=== PATIENT | male | born 1960 | race Caucasian/White ===

== ENCOUNTER → 2022-12-30 | Outpatient (CLI) | payer OTHER | END | disposition home or self-care (01) | LOC: RAD 14:21 | PROVIDERS: ATTEND Internal Medicine Interventional Cardiology | DX: I08.1 Rheumatic disorders of both mitral and tricuspid valves (principal); R06.02 Shortness of breath | CPT/HCPCS: 93306 ==

== ENCOUNTER → 2023-01-25 | Outpatient (CLI) | payer OTHER | END | disposition home or self-care (01) | LOC: RAD 12:14 | PROVIDERS: ATTEND Internal Medicine Interventional Cardiology | DX: I87.2 Venous insufficiency (chronic) (peripheral) (principal) | CPT/HCPCS: 93970 ==

== ENCOUNTER → 2024-05-08 | Outpatient (CLI) | payer OTHER | END | disposition home or self-care (01) | LOC: RAD 16:05 | PROVIDERS: ATTEND Student in an Organized Health Care Education/Training Program | DX: M25.561 Pain in right knee (principal) | CPT/HCPCS: 73560 ==

== ENCOUNTER → 2024-07-20 | Outpatient (CLI) | payer OTHER | END | disposition home or self-care (01) | LOC: LAB 15:48 | PROVIDERS: ATTEND Student in an Organized Health Care Education/Training Program | DX: N40.1 Benign prostatic hyperplasia with lower urinary tract symptoms (principal) | CPT/HCPCS: 87086 ==

== ENCOUNTER → 2024-10-19 | Outpatient (CLI) | payer OTHER | END | disposition home or self-care (01) | LOC: RAD 09:41 | PROVIDERS: ATTEND Internal Medicine | DX: I70.203 Unspecified atherosclerosis of native arteries of extremities, bilateral legs (principal); I87.8 Other specified disorders of veins; I87.2 Venous insufficiency (chronic) (peripheral) | CPT/HCPCS: 93922; 93925; 93970 ==

== ENCOUNTER → 2025-01-26 | Outpatient (CLI) | payer OTHER | END | disposition home or self-care (01) | LOC: RAD 07:40 | PROVIDERS: ATTEND Physician Assistant | DX: I05.8 Other rheumatic mitral valve diseases (principal); I87.2 Venous insufficiency (chronic) (peripheral); I11.9 Hypertensive heart disease without heart failure; I65.21 Occlusion and stenosis of right carotid artery | CPT/HCPCS: 93306; 93880 ==

== ENCOUNTER 2025-03-01 07:55 | Day surgery (SDC) | payer OTHER ==
[2025-02-27 11:39] VITALS: BP 143/78; PULSE 70; RESP 15; TEMP 97.9; O2SAT 96
[2025-02-27 11:56] LABS: BASOPHIL # 0.0 10^3/uL (0.0-0.1); BASOPHIL % 0.2 % (0.2-1.2); EOSINOPHIL # 0.1 10^3/uL (0.0-0.2); EOSINOPHIL % 1.2 % (0.0-5.0); HEMATOCRIT(ML) 38.5 % (37.0-53.0); IG % 0.20 % (0.00-0.50); LYMPHOCYTES # 0.50 10^3/uL1 (1.0-4.8); LYMPHOCYTES % 8.8 % (24.0-44.0); MEAN CORP HGB 33.2 pg (26-34); MEAN CORP HGB CONCENTRATION 33.8 g/dL (33-36.5); MEAN CORP VOLUME 98.5 fL (78-100); MONOCYTES # 0.5 10^3/uL (0.3-0.8); MONOCYTES % 8.8 % (5.0-12.0); NEUTROPHIL # 4.6 10^3/uL (1.8-7.7); NEUTROPHILS % 80.8 % (41.0-85.0); RED BLOOD CELL 3.91 10^6/uL (4.50-5.90); RED CELL DISTRIBUTION WIDTH 11.8 % (11.5-14.5); WHITE BLOOD CELL 5.7 10^3/uL (4.5-11.0)
[2025-02-27 12:06] LABS: CREATININE SERUM 1.04 mg/dL (0.59-1.40); EST GFR, NON-AA 71.9 (>/=60); INR 1.0; PROTHROMBIN PROTIME 10.2 SEC (9.3-11.6)
[2025-03-01] VITALS (8 sets, daily range): BP systolic 142–174; BP diastolic 62–89; PULSE 65–82; RESP 16–18; TEMP 97.1–97.5; O2SAT 88–97
[~2025-03-01] VITALS: Ht 175.3 cm; Wt 100.2 kg
[~2025-03-01 07:55] MED LIST: ABIR250T PO; ARIP2TAB3 PO; ATOR40TA50 PO; BUSP10TA PO; LISI20TA21 PO; NITROGLYCERIN 25MG/D5W 250ML 250 ML IV ONE; NS 1000ML 1,000 ML ONE; OLAN5TAB67 PO; PRED5TAB17 PO; SUBLIMAZE 100MCG/2ML ONE; TERA2CAP3 PO; VERSED ONE; XYLOCAINE ONE; [UNRECOGNIZED DRUG - CODE] PO; [UNRECOGNIZED DRUG - CODE] SUBCUT
[2025-03-01] MEDS: NS 1000ML 1,000 ML IV ONE (08:17)
[2025-03-01 08:36] LABS: CREATININE SERUM 0.86 mg/dL (0.59-1.40); EST GFR, NON-AA 89.5 (>/=60)
== END 2025-03-01 12:33 | disposition home or self-care (01) ==
LOC: SDC 07:55
PROVIDERS: ATTEND Internal Medicine
DX: I70.213 Atherosclerosis of native arteries of extremities with intermittent claudication, bilateral legs (principal); I87.2 Venous insufficiency (chronic) (peripheral); I10 Essential (primary) hypertension; F32.A Depression, unspecified; F41.9 Anxiety disorder, unspecified; Z90.49 Acquired absence of other specified parts of digestive tract; Z98.890 Other specified postprocedural states; Z79.899 Other long term (current) drug therapy; Z79.51 Long term (current) use of inhaled steroids; Z80.42 Family history of malignant neoplasm of prostate; Z82.49 Family history of ischemic heart disease and other diseases of the circulatory system; Z82.3 Family history of stroke
CPT/HCPCS: 85025; 36415 ×2; 80048 ×2; 85610; 75625; 36247; 75716; 93005; 99153; 99152; J7030; J1644; C1894; A6258; C1769 ×3; J3490; J2250; J3010; A4618; C1725; C1760; Q9967; 76937